=== PATIENT | male | born 1980 | race Caucasian/White ===

== ENCOUNTER → 2019-01-07 20:32 | Outpatient (CLI) | payer OTHER, SELFPAY | PROVIDERS: Family Provider Family Medicine; PCP Family Medicine; Referring Provider Family Medicine; Visit Provider Family Medicine | DX: G47.10 Hypersomnia, unspecified (principal); R53.83 Other fatigue | CPT/HCPCS: 95810 ==

== ENCOUNTER → 2019-02-19 20:00 | Outpatient (CLI) | payer OTHER, SELFPAY | PROVIDERS: Family Provider Family Medicine; PCP Family Medicine; Referring Provider Family Medicine; Visit Provider Family Medicine | DX: G47.33 Obstructive sleep apnea (adult) (pediatric) (principal) | CPT/HCPCS: 95811 ==

== ENCOUNTER → 2023-08-08 | Outpatient (CLI) | payer OTHER, SELFPAY ==
--- NOTE | 2023-08-08 11:30 | RAD_ITS ---
EXAM: XR CERVICAL SPINE, 4 OR 5 VIEWS CLINICAL INDICATION: NECK,BACK,ARM PAIN TECHNIQUE: Frontal, lateral and bilateral oblique views of the cervical spine. COMPARISON: No relevant prior studies available. FINDINGS: VERTEBRAE: There is reversal of the normal cervical lordosis. Preserved vertebral body height. No acute fracture. No spondylolisthesis. No significant facet arthropathy. DISC SPACES: Unremarkable. Disc spaces are maintained. SOFT TISSUES: Unremarkable. No prevertebral soft tissue widening. LUNG APICES: Clear. RAD/Cerv Spine 4 or 5 Views IMPRESSION: 1. No acute osseous abnormalities. 2. Reversal of the normal cervical lordosis which may be due to a muscular strain. Electronically Signed: Darrick Lehman MD at 23:18 EDT ,
--- OUTSIDE RECORDS SUMMARY | 2023-08-08 13:58 | XMS RPT_ITS | CCD ---
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 12 tablet 0 07/27/2023 07/30/2023 Active Completed/Discontinued Medications Medication Drug Class(es) Dates Sig (Normalized) Sig (Original) hydroCHLOROthiazide 12.5 mg / lisinopril 10 mg oral tablet (1 source) Thiazide Diuretic, Angiotensin Converting Enzyme Inhibitor Start: 06-27-2021 End: 06-07-2022 lisinopril-hydr oCHLOROthiazide (PRINZIDE,ZESTO RETIC) 10-12.5 mg per tablet hydroCHLOROthiazide 12.5 mg / losartan potassium 50 mg oral tablet (4 sources) Thiazide Diuretic, Angiotensin 2 Receptor Julio Start: 04-07-2022 take 1 tablet by mouth once daily losartan-hydroC HLOROthiazide (HYZAAR) 50-12.5 mg per tablet Take 1 tablet by mouth once daily. 0 04/07/2022 Active Problems Active Problems Problem Classification Problem Date Documented Date Episodic/Chronic Diverticulosis and diverticulitis (6 sources) Diverticulitis of colon with perforation; Translations: [Diverticulitis of large intestine with perforation and abscess without bleeding] Onset: 05-26-2013 07-30-2017 Chronic Essential hypertension (5 sources) Essential hypertension; Translations: [Essential (primary) hypertension] Onset: 06-07-2022 06-07-2022 Chronic Headache; including migraine (6 sources) Migraine; Translations: [Migraine, unspecified, not intractable, without status migrainosus] 07-30-2017 Chronic Nutritional deficiencies (7 sources) Vitamin D deficiency; Translations: [Vitamin D deficiency, unspecified] Onset: 07-30-2017 08-02-2017 Chronic Other connective tissue disease (1 source) Muscle spasm of cervical muscle of neck; Translations: [Other muscle spasm] 07-27-2023 Episodic Other nutritional; endocrine; and metabolic disorders (7 sources) Cholesterol level - finding; Translations: [Disorder of lipoprotein metabolism, unspecified] Onset: 07-30-2017 06-06-2020 Chronic Residual codes; unclassified (7 sources) Obstructive sleep apnea syndrome; Translations: [Obstructive sleep apnea (adult) (pediatric)] Onset: 03-25-2019 06-11-2019 Chronic Spondylosis; intervertebral disc disorders; other back problems (1 source) Cervical radiculopathy; Translations: [Radiculopathy, cervical region] 07-27-2023 Episodic Past or Other Problems Problem Classification Problem Date Documented Da te Episodic/Chronic Genitourinary symptoms and ill-defined conditions (6 sources) Microscopic hematuria; Translations: [Other microscopic hematuria] Onset: 06-11-2019 07-04-2019 Episodic Other circulatory disease (6 sources) Prehypertension; Translations: [Elevated blood-pressure reading, without diagnosis of hypertension] Onset: 07-30-2017 07-30-2017 Episodic Other non-traumatic joint disorders (6 sources) Pain in right knee; Translations: [Pain in joint, lower leg] Onset: 11-11-2018 11-11-2018 Episodic Other nutritional; endocrine; and metabolic disorders (5 sources) Blood urate raised; Translations: [Hyperuricemia without signs of inflammatory arthritis and tophaceous disease] Onset: 06-07-2022 06-07-2022 Episodic Other screening for suspected conditions (not mental disorders or infectious disease) (14 sources) Elevated C-reactive protein; Translations: [Elevated C-reactive protein (CRP)] Onset: 07-30-2017 07-30-2017 Episodic Results Test Name Value Interpretation Reference Range Facil ity Vital Signs Date Time Vital Sign Value Performing Clinician Faci lity 07-27-2023 13:50-0500 Body temperature 96.4 [degF] Krislyn Aberegg PA Work Phone: [facility] 07-27-2023 13:50-0500 Body weight 95.98 kg Krislyn Aberegg PA Work Phone: [facility] 07-27-2023 13:50-0500 Diastolic blood pressure 90 mm[Hg] Krislyn Aberegg PA Work Phone: [facility] 07-27-2023 13:50-0500 Heart rate 75 /min Krislyn Aberegg PA Work Phone: [facility] 07-27-2023 13:50-0500 Respiratory rate 19 /min Krislyn Aberegg PA Work Phone: [facility] 07-27-2023 13:50-0500 SaO2% (BldA) [Mass fraction] 100 % Krislyn Aberegg PA Work Phone: [facility] 07-27-2023 13:50-0500 Systolic blood pressure 120 mm[Hg] Krislyn Aberegg PA Work Phone: [facility] 06-07-2022 12:57-0500 Body height 178.1 cm [facility] Work Phone: [facility] 06-07-2022 12:57-0500 Body weight 92.03 kg Claudio Gonzalo DO Work Phone: [facility] 06-07-2022 08:04-0500 Diastolic blood pressure 84 mm[Hg] Jose J Lara MD Work Phone: [facility] 06-07-2022 08:04-0500 Heart rate 83 /min Jose J Lara MD Work Phone: [facility] 06-07-2022 08:04-0500 Systolic blood pressure 120 mm[Hg] Jose J Lara MD Work Phone: [facility] 06-07-2022 07:54-0500 Body height 178 cm Jose J Lara MD Work Phone: [facility] 06-07-2022 07:54-0500 Body temperature 97.7 [degF] Jose J Lara MD Work Phone: [facility] 06-07-2022 07:54-0500 Body weight 93.94 kg Jose J Lara MD Work Phone: [facility] Encounters Encounter Date Encounter Type Care Provider Facility Start: 07-27-2023 End: 07-27-2023 ambulatory [facility] Facility:[facility] Start: 07-27-2023 End: 07-27-2023 Patient encounter procedure Mara JARRELL Work Phone: [facility] Procedures Date Procedure Procedure Detail Performing Clinician Start: 06-07-2022 Lipid 1996 panel - S belle or Plasma Mara JARRELL Work Phone: Plan of Treatment Date Care Activity Detail Author Start: 07-31-2027 Urine microalbumin profile [facility] Start: 06-07-2027 Lipid panel Lipid Screening [facility] Start: 06-07-2027 LIPID SCREEN LIPID SCREEN [facility] Start: 06-08-2026 LIPID SCREEN LIPID SCREEN [facility] Start: 05-26-2023 Depression Assessment Depression Assessment [facility] Start: 01-24-2023 Covid-19 Vaccine ( season) Covid-19 Vaccine () [facility] Start: 01-24-2023 Influenza vaccination Influenza Vaccine (#1) [facility] Start: 05-26-2022 DEPRESSION ASSESSMENT DEPRESSION ASSESSMENT [facility] Start: 05-15-2022 End: 07-15-2022 25-hydroxyvitamin D3 [Mass/volume] in Serum or Plasma VITAMIN D 25 HYDROXY Lab Routine Laboratory examination Expected: 05/15/2022, Expires: 07/15/2022 [facility] Work Phone: Immunizations Immunization Date Immunization Notes Care Provider Fa cili 02-27-2021 influenza, seasonal, injectable Jose J Lara MD Work Phone: [facility] 02-27-2021 influenza virus vacc ine, unspecified formulation Mara JARRELL Work Phone: [facility] 02-23-2020 Influenza, injectabl e, Madin Hendley Canine Kidney, preservative free, quadrivalent Jose J Lara MD Work Phone: [facility] 02-23-2019 influenza, injectabl e, quadrivalent, contains preservative Jose J Lara MD Work Phone: [facility] 07-30-2017 influenza, injectabl e, quadrivalent, contains preservative Jose J Lara MD Work Phone: [facility] 07-30-2017 tetanus toxoid, redu mason diphtheria toxoid, and acellular pertussis vaccine, adsorbed Jose J Lara MD Work Phone: [facility] 02-29-2016 influenza, seasonal, injectable, preservative free Jose J Lara MD Work Phone: [facility] 04-18-2009 novel Influenza-H1N1 -09, live virus for nasal administration Jose J Lara MD Work Phone: [facility] Payers Date Payer Category Payer Unknown [id number] 2015 Unknown [id number] Social History Date Type Detail Facility Start: 07-29-2017 End: 06-07-2022 Tobacco smoking status NHIS Never smoked tobacco [facility] Start: 07-29-2017 End: 06-07-2022 Tobacco use and exposure Smokeless tobacco non-user [facility] Start: 06-18-2021 End: 07-27-2023 Alcohol intake Current drinker of alcohol (finding) [facility] Start: 1980 Sex Assigned At Male [facility] Start: 06-07-2022 End: 07-27-2023 History of Social function [facility] Start: 06-07-2022 End: 07-27-2023 Tobacco use panel [facility] National Score (1-100), lower number is lower risk 42 [facility] Start: 06-08-2021 Gender identity Identifies as male gender (finding) [facility] Start: 06-08-2021 Sexual orientation Heterosexual (ora villegas) [facility] NEGATED: Highlighted rowStart: SEANF History of tobacco use Passive smoker [facility] Work Phone: Clinical Notes 06-03-2022 to 07-27-2023 Mara Fernández PA - 07/27/2023 1:54 PM Chester Reese [employer]vel [employer] - 07/08/2022 7:[address] - 06/07/2022 12:48 PM Patti Norris RN - 06/07/2022 7:27 AM EST Note Date & Type Note Facility 07-27-2023 Note HNO ID: [id number] Author: MARA FERNÁNDEZ PA Service: ? Author Type: Physician Fiscal Assistant Type: Progress Notes Filed: 07/27/2023 13:58 Note Text: This note was created using Cynve[employer]er. Subjective Quita Kumar is a 42 year old male. HPI 42-year-old male presents for right upper back pain and radiating right arm pain. Patient states that he always has some tightness in his right upper back area and under the shoulder blade. He states that today it felt tight he and his gave him a massage. He states he took a shower and afterwards was doing an arm cervical and felt pain in his upper back area/shoulder blade. He states he started getting shooting pains down his right arm. No numbness or tingling. He states turning his neck causes worsening pain down the arm. No bowel or bladder incontinence. No headache. No fall or specific injury. No history of surgery on the neck or back in the past. No chest pain or shortness of breath. PAST MEDICAL HISTORY Diagnosis Date Diverticulitis of colon with perforation 2013 Migraine headache about 1 per month Obstructive sleep apnea on CPAP 03/25/2019 Occasional elevated blood pressure readings without diagnosis of hypertension Post-nasal drainage 2016 seen by ENT, negative allergy testing, attributed to possible silent acid reflux PAST SURGICAL HISTORY Procedure Laterality Date COLONOSCOPY 2013 TONSILLECTOMY AND ADENOIDECTOMY HX 1984 ALLERGIES Patient has no known allergies. MEDICATIONS losartan-hydroCHLOROthiazide (HYZAAR) 50-12.5 mg per tablet Take 1 tablet by mouth once daily. omeprazole (PRILOSEC) 40 mg capsule Take 40 mg by mouth once daily. SUMAtriptan (IMITREX) 50 mg tablet Take 50 mg by mouth as needed. predniSONE (DELTASONE) 10 mg tablet Take 4 tabs daily for 3 days, then 2 tabs daily for 3 days, then 1 tab daily for 3 days with food. methocarbamol (ROBAXIN) 500 mg tablet Take 1 tablet by mouth every 6 hours as needed (Pain) for up to 3 days. FAMILY HISTORY Problem Relation Age of Onset Hypertension Mother Age 80 Breast Cancer Mother diagnosed at 48 other (Mitral Valve Prolapse) Mother other (Probable TIA) Mother Coronary Artery Disease Father Age 80; stent at 75 Prostate Cancer Father diagnosed at ~55 other (Sleep apnea) Father Breast Cancer Sister diagnosed at 55 in 2014 Heart Brother SVT Hyperlipidemia Brother other (Diverticulitis requiring partial colectomy) Paternal Grandmother Breast Cancer Sister diagnosed at 44 in 2007 other (Diverticulitis requiring partial colectomy) Sister other (AFib) Sister None Sister other (Diverticulitis requiring partial colectomy) Paternal Uncle None Daughter Social History Tobacco Use Smoking status: Never Passive exposure: Never Smokeless tobacco: Never Vaping Use Vaping Use: Never used Substance Use Topics Alcohol use: Yes Alcohol/week: 0.0 - 2.3 standard drinks of alcohol Review of Systems Constitutional: Negative for chills and fever. HENT: Negative for congestion and sore throat. Respiratory: Negative for cough and shortness of breath. Gastrointestinal: Negative for diarrhea and vomiting. Musculoskeletal: Positive for back pain and neck pain. Objective BP 120/90 Pulse 75 Temp (!) 35.8 ?C (96.4 ?F) Resp 19 Wt 96 kg (211 lb 9.6 oz) SpO2 100% BMI 30.27 kg/m? Physical Exam Vitals and nursing note reviewed. Constitutional: General: He is not in acute distress. Appearance: Normal appearance. He is not toxic-appearing. Cardiovascular: Rate and Rhythm: Normal rate and regular rhythm. Pulmonary: Effort: Pulmonary effort is normal. Breath sounds: Normal breath sounds. Musculoskeletal: Cervical back: Tenderness present. No bony tenderness. Normal range of motion. Thoracic back: Tenderness present. No bony tenderness. Normal range of motion. Lumbar back: Normal. Comments: Patient has right-sided cervical paraspinal muscle tenderness and right trapezius muscle tenderness. Mild right-sided thoracic paraspinal muscle tenderness near the shoulder blade. He does have trapezius spasm noted on the right. Normal ROM cervical and thoracic spine. Nontender shoulder. Normal ROM of shoulder. No deformity. Patient states he has sharp pains going down the right arm. Normal sensation and strength right upper extremity. Normal clinical informatics director strength. Skin: General: Skin is warm and dry. Neurological: Mental Status: He is alert. Assessment and Plan ASSESSMENT/PLAN: 1. Cervical radiculopathy - ICD9: 723.4, ICD10: M54.12 (primary diagnosis) -Suspect cervical radiculopathy. -Rx for prednisone taper -Rx for Robaxin -No imaging available at time of exam. Patient has not had a fall. Low suspicion for fracture. -Advised patient to follow-up with his PCP next week. He may benefit from physical therapy or advanced imaging if symptoms persist. 2. Trapezius muscle spasm - ICD9: 728.85, ICD10: M62.838 -See ab (more content not included)... [facility] 07-27-2023 History of Presen t illness Narrative This note was created using Cynve[employer]er. Subjective Quita Kumar is a 42 year old male. HPI 42-year-old male presents for right upper back pain and radiating right arm pain. Patient states that he always has some tightness in his right upper back area and under the shoulder blade. He states that today it felt tight he and his gave him a massage. He states he took a shower and afterwards was doing an arm cervical and felt pain in his upper back area/shoulder blade. He states he started getting shooting pains down his right arm. No numbness or tingling. He states turning his neck causes worsening pain down the arm. No bowel or bladder incontinence. No headache. No fall or specific injury. No history of surgery on the neck or back in the past. No chest pain or shortness of breath. PAST MEDICAL HISTORY Diagnosis Date Diverticulitis of colon with perforation 2013 Migraine headache about 1 per month Obstructive sleep apnea on CPAP 03/25/2019 Occasional elevated blood pressure readings without diagnosis of hypertension Post-nasal drainage 2017 seen by ENT, negative allergy testing, attributed to possible silent acid reflux PAST SURGICAL HISTORY Procedure Laterality Date COLONOSCOPY 2013 TONSILLECTOMY AND ADENOIDECTOMY HX 1984 ALLERGIES Patient has no known allergies. MEDICATIONS losartan-hydroCHLOROthiazide (HYZAAR) 50-12.5 mg per tablet Take 1 tablet by mouth once daily. omeprazole (PRILOSEC) 40 mg capsule Take 40 mg by mouth once daily. SUMAtriptan (IMITREX) 50 mg tablet Take 50 mg by mouth as needed. predniSONE (DELTASONE) 10 mg tablet Take 4 tabs daily for 3 days, then 2 tabs daily for 3 days, then 1 tab daily for 3 days with food. methocarbamol (ROBAXIN) 500 mg tablet Take 1 tablet by mouth every 6 hours as needed (Pain) for up to 3 days. FAMILY HISTORY Problem Relation Age of Onset Hypertension Mother Age 80 Breast Cancer Mother diagnosed at 48 other (Mitral Valve Prolapse) Mother other (Probable TIA) Mother Coronary Artery Disease Father Age 80; stent at 75 Prostate Cancer Father diagnosed at ~55 other (Sleep apnea) Father Breast Cancer Sister diagnosed at 55 in 2014 Heart Brother SVT Hyperlipidemia Brother other (Diverticulitis requiring partial colectomy) Paternal Grandmother Breast Cancer Sister diagnosed at 44 in 2007 other (Diverticulitis requiring partial colectomy) Sister other (AFib) Sister None Sister other (Diverticulitis requiring partial colectomy) Paternal Uncle None Daughter Social History Tobacco Use Smoking status: Never Passive exposure: Never Smokeless tobacco: Never Vaping Use Vaping Use: Never used Substance Use Topics Alcohol use: Yes Alcohol/week: 0.0 - 2.3 standard drinks of alcohol Review of Systems Constitutional: Negative for chills and fever. HENT: Negative for congestion and sore throat. Respiratory: Negative for cough and shortness of breath. Gastrointestinal: Negative for diarrhea and vomiting. Musculoskeletal: Positive for back pain and neck pain. Objective BP 120/90 Pulse 75 Temp (!) 35.8 C (96.4 F) Resp 19 Wt 96 kg (211 lb 9.6 oz) SpO2 100% BMI 30.27 kg/m Physical Exam Vitals and nursing note reviewed. Constitutional: General: He is not in acute distress. Appearance: Normal appearance. He is not toxic-appearing. Cardiovascular: Rate and Rhythm: Normal rate and regular rhythm. Pulmonary: Effort: Pulmonary effort is normal. Breath sounds: Normal breath sounds. Musculoskeletal: Cervical back: Tenderness present. No bony tenderness. Normal range of motion. Thoracic back: Tenderness present. No bony tenderness. Normal range of motion. Lumbar back: Normal. Comments: Patient has right-sided cervical paraspinal muscle tenderness and right trapezius muscle tenderness. Mild right-sided thoracic paraspinal muscle tenderness near the shoulder blade. He does have trapezius spasm noted on the right. Normal ROM cervical and thoracic spine. Nontender shoulder. Normal ROM of shoulder. No deformity. Patient states he has sharp pains going down the right arm. Normal sensation and strength right upper extremity. Normal clinical informatics director strength. Skin: General: Skin is warm and dry. Neurological: Mental Status: He is alert. Assessment and Plan ASSESSMENT/PLAN: 1. Cervical radiculopathy - ICD9: 723.4, ICD10: M54.12 (primary diagnosis) -Suspect cervical radiculopathy. -Rx for prednisone taper -Rx for Robaxin -No imaging available at time of exam. Patient has not had a fall. Low suspicion for fracture. -Advised patient to follow-up with his PCP next week. He may benefit from physical therapy or advanced imaging if symptoms persist. 2. Trapezius muscle spasm - ICD9: 728.85, ICD10: M62.838 -See above. Diagnosis and treatment plan were discussed and questions were answered to the patient's satisfaction. Pt acknowledged understanding of concepts and follow up plan. Specific signs and symptoms that would indicate the need for higher level of care were discussed in detail warranting prompt ER evaluation. WESLY Odonnell documented in this encounter [facility] 07-08-2022 History of Presen t illness Narrative [employer] Summary The information included in this report is a comprehensive overview of the components of fitness necessary to maintain a higher quality of life. Upon completion of the fitness evaluation, this information has been customized to each individual in order for the evaluated individual to understand and utilize the major components of fitness, as well as the proper guidelines for exercising in a safe and effective manner. Each program is compiled as specified to individual needs and health goals. Patient Name: Quita Kumar Date: June 07, 2022 [facility] Number: [id number] [employer] Rankin Hours Worked/ wk: 45 Travel (%): 0 Health Related Goals: Need to start doing something; time saver workouts. Fitness History: No current exercise routine at this time; curling 2 days per week. Health Limitations: 1. Hypertension. 2. Borderline high cholesterol. 3. Normal coronary arteries, Coronary Calcium Score = 0 (05/2019). 4. Elevated C-reactive protein (us-CRP) 5. Obstructive sleep apnea on CPAP. 6. Elevated uric acid in blood. 7. Vitamin D deficiency. 8. TORIBIO Risk Score: The 10-year risk of development of coronary heart disease (coronary , resuscitated cardiac arrest, myocardial infarction, or angina with revascularization) can be assessed with the [place] risk scoring method along with Coronary Calcium Score, which includes age, sex, total and HDL cholesterol, blood pressure, diabetes and cigarette smoking, along with family history of heart attack and use of lipid-lowering medication. Percentage risk of less than 5% is considered low, 5 - 7.5% is considered borderline, 7.5% - 19.9% is intermediate risk, and greater than 20% is considered high risk. Based on your TORIBIO risk score, your 10-year risk of developing coronary heart disease is 2-3%. Orthopedic Limitations/ Chronic Pain: Neck pain, tension. Fitness Testing: See attached results for comparison of standards for age and gender. Sit and Reach Score: 10 inches *Ranking: Poor * Based on standardized ACSM guidelines for age and gender. General Flexibility: Body Part Right Left Body Part Right Left Hamstrings: 3 3 Quadriceps: 2 2 Gastroc/ Soleus: 2 2 Shoulder IR: 2 1 Hip Internal Rot. 2 2 Shoulder ER: 2 1 Hip External Rot. 2 2 Neck Flex/Ext: 2/2 Straight Leg Raise 3 3 Neck Rot.: 2 Lower Back: 2 Neck Sidebend: 2 1= Excellent 2=Normal 3=Below Average 4=Poor Balance: Normal Squat Test: Normal Exercise Recommendations: Type of exercise: Frequency (week) Duration (min) Mode: Intensity: Notes: Cardiovascular: Frequency should be a minimum 5-7 times per week of moderate intensity or 3-4 of vigorous intensity. 30-60 minutes Recommended examples include, but are not limited to: Running, biking, hiking, elliptical, swimming, dancing, aerobics, spinning Heart Rate Guidelines: Maintain a minimum of 150 minutes of cumulative cardiovascular exercise each week to meet [place] [employer] Guidelines. Anything beyond ten minutes of continuous cardiovascular exercise counts towards the 150 minute goal. Moderate: 137-154 bpm Vigorous: 158-166 bpm For weight loss, it is most effective to build up to a minimum of 5 sessions per week. Two sessions should include interval training of alternating higher and lower intensity for 2-4 minute bursts for 20-30 minutes, and the other days should be moderate intensity exercise at a constant pace for 45-60 minutes. Moderate: 3-5 Vigorous: 6-8 When just starting cardiovascular exercise, it is most effective to begin with light to moderate intensity cardio, and gradually increase the time and intensity. To improve cardiovascular performance, it is most effective to include interval training of alternating higher and lower intensities for 2-4 minute bursts for at least 20 minutes. Resistance: Frequency should be a minimum of two times per week for each major muscle group. When isolating muscles, the frequency may need to increase. 20-30 minutes Please see Time Saver Workout and total body routine using free weights, body weight and bands. 2-4 sets of 8-12 repetitions to exhaustion Safety and Effectiveness: Provide slow resistance in each direction and adapt the resistance to suit your strength capabilities. Allow for a day of rest in between sessions of the same muscle group. Do not hold your breath. Exhale during the most difficult portion of any lift. Initiate the enclosed strength training program and alter the routine every 6-12 weeks to prevent muscle memory. All exercises should be performed a minimum of twice a week to show gains. Please see chest and back exercises. Resistance exercise can assist with weight loss by increasing your resting metabolic rate. Flexibility: 3-7 10-20 minutes Please see upper body stretches. Each stretch should cause you to feel tension in the muscle, but never a sharp pain. Stretching is most effective when done either after or independent of exercise. A warm up is important in order to prevent injury. Please see full body stretches. 20 seconds per stretch, and repeat each stretch 2-3 times; stretch any restricted muscles. Balance/ Agility: 3-7 10-20 minutes Basic Balance Light Please see basic balance exercises. Special Considerations: If you feel any unusual sensations during exercise including, but not limited to chest pain, nausea, lightheadedness, dizziness, extreme fatigue, or any sharp pain, discontinue exercise immediately and consult your physician. Any specific exercises that cause discomfort should be stopped and excluded from your routine. This exercise program is designed to be safe and effective, however, certain health conditions may arise that would change safety guidelines for exercise. Please check with your physician if you are newly diagnosed with heart disease, high blood pressure, diabetes, osteoporosis, arthritis, or any other chronic condition. 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 [place] BMI: 18.5-24.9 Percent body fat: 25.8 %, [place] body fat percentage is 10-20% for male. 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 Patient's symptoms are: Weight Concerns: failure to lose weight Diet history: obtained and reviewed Awake at 5 am. Asleep at 10 pm. Feels good with this amount of sleep. Breakfast 6 am: [place] yogurt with 1/4 cup granola Lunch 12 pm: chips, leftovers from dinner, and cookies or other sweet, and can of diet soda. Dinner 6/6:30 pm: Main - meat, fish, or pasta, starch/bread or vegetable. Snack: not common Red meat - 4-6, fish - 0-1, chicken - 6, occasionally pasta or other meat free meal. Dairy - 2 servings per day, often meals have cheese added Legumes - dislikes beans. Nuts/seeds - not often but does like them. Beverages: Coffee 2 cups/day - creamer, 28 oz diet soda per day ETOH: occasionally. Dining Out: 1-2 meals/week Nutrition Supplements: none Allergies: Patient has no known allergies. Past Medical History PAST MEDICAL HISTORY Diagnosis Date Diverticulitis of colon with perforation 2013 Migraine headache about 1 per month Obstructive sleep apnea on CPAP 03/25/2019 Occasional elevated blood pressure readings without diagnosis of hypertension Post-nasal drainage 2017 seen by ENT, negative allergy testing, attributed to possible silent acid reflux Labs: available nutrition-related labs reviewed - elevated CRP, total cholesterol, and LDL cholesterol, low vitamin D Medications: reviewed in chart and medical history questionnaire Malnutrition Screening Significant unintentional weight loss? No Eating less than 75% of usual intake for more than 2 weeks? No Learning Readiness: Motivation to Learn: Interested - Wants to learn Family/Significant Other Support: Unable - Family not present Cognitive Ability: Alert and Oriented Patient learns best by: Multiple Methods Factors affecting learning: None Physical limitation affecting learning: None Educational materials provided: Mediterranean Diet Assessment: Body composition showing overweight with central adiposity. Weight History/Weight Change: Has been relatively stable. Since 05/2020 patient has gained 0.4 lbs overall with a 3.1 lb gain of skeletal muscle and a 2.6% reduction in body fat percentage. Food recall showing: Undesirably Exceeding Standard Recommendations for - red meat, sweets/refined carbs Meeting Standard Recommendations for - dairy/calcium (cheese is common) Below Standard Recommendations for - fruit, vegetables, whole grains, legumes, nuts/seeds, fish/omega-3 Patient is interested in weight loss. Prepares most foods at home.Tracking calories in [employer]. Reports he knows what to do but struggles with implementation. Nutrition Diagnosis: Overweight/obesity, related to, excess energy intake, food/nutrition - related knowledge deficit, and physical inactivity, as evidenced by BMI above normative standard for age and gender and waist circumference above normative standard for age and gender. Nutrition Monitoring & Evaluation: Implement dietary recommendations to support your goals to lose weight and improve health overall. Nutrition Interventions: Comprehensive nutrition evaluation focused on health promotion, modify composition of meals. Plan Behavior Change: Set small goals working toward long-term health and nutrition goals. 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 Start with the goals you think will be easiest to help build confidence in your ability to change. Some of the strategies we discussed today are listed below: Add fruit - to breakfast, and lunch if possible. Use frozen/pre-cut fruits to make this easier. For lunch choose eat the fruit before the meal to help with portion control. Dinner - prepare enough food to ensure a full sized lunch the following day. This will help reduce low-nutrient, high calorie foods sugar as chips and sweets. Try Linq3 danial for meal planning. This can help you to find recipes that align with the different food preferences of you and your . The pro-version allows you to see nutrition information. Look at the nutrition label when grocery shopping and choose the lowest saturated fat foods. The larger the difference between total fat and saturated fats (such as 15 g total fat and 1 g saturated fat), the more heart healthy fats are in the food. Optimize Body Composition: Aim for 3302-2024 calories per day paired with exercise for a 0.5-1.5 lb per week weight loss. Continue to track calories in MyFitnessPal. Follow executive health physician guidance regarding activity limitations. Gradually work toward exercise guidelines provided by exercise physiology. Strength training is essential to maintain muscle mass. Consume high protein foods (totaling 25-35 g protein) with each meal or at least 3 times per day to best maintain muscle mass. You are likely meeting this goal most days. 5-10% weight/fat loss (10-20 lbs) can help to improve heart health. Mediterranean Diet: Aim for 1/2 plate of vegetables, 1/4 plate of whole grains, and 1/4 plate plant-based protein (such as tofu, edmame, tempeh, and starchy beans) or low fat animal proteins as the base of most of your meals. Since you prefer your vegetable mixed in - aim for twice as many vegetables as starch and protein. Choose fish twice per week, or choose plant-based omega-3s such as gerardo seeds, ground flax seeds, or walnuts daily. Add ground flax and/or gerardo to your yogurt, fruit, and granola in the morning. Choose olive oil, avocado, and nuts (up to 1/4 cup per serving) as main sources of fat in the diet. Limit use of butter, ghee, lard, and coconut oil. Keep meat portions to 1/4 plate or less, and choose fish, or skinless poultry most often. Minimize intake of red meat and pork (ideally 0-1 serving per week), and choose low fat options when you do have them. Choose fruit as an every day dessert or appetizer to reduce total food consumed at the meal. Aim for at least 2 servings per day. Choose low fat milk and low fat yogurt for your main dairy products. Choose low fat cheese when available and keep portions of cheese small and infrequent. Eat a variety of colors when it comes to fruits and vegetables. The more variety of plant foods in your diet, the better you will meet your antioxidant and nutrient needs. Though plant oils can be healthy for your cholesterol, they contain ample calories so monitor portions added to food and used for cooking - 1tbsp is 120 calories. Hydration: Do your best to drink at least 80 oz fluid per day (coffee does count). Being well-hydrated can help with appetite and weight control. Do your best to drink water or sparkling water throughout the day. Diet soda can contribute to increased food intake later in the day for some individuals. If you are interested in a different flavor, consider trying Hint Water or flavored sparkling water to add some flavor with no added sugars or artificial sweeteners. Provider Follow Up: If you need additional nutrition education support before your next executive health visit, please call [phone] to schedule a telehealth visit with an outpatient [facility] Dietitian. Supplements: It is best to get your nutrients from foods rather than supplements whenever possible. Discuss your current supplements with the executive health physician to determine if any changes should be made to optimize your health. Vitamin D is best absorbed in the presence of fat. Take Vitamin D with your largest, highest fat meal of the day. Criteria: lab values, body composition/weight, food recall, patient input Follow up: at next Executive Physical Referred/Supervised by: Jane/Matt Consult Billing Type: body composition rate MNT: ea 15 minutes, 4 increments Signed by: Gin Velazquez RD documented in this encounter [facility] 06-07-2022 History of Presen t illness Narrative Mr. Quita Kumar is a 41 year old male from [facility], who presents for a comprehensive health evaluation. Last Executive Physical 05/2021. PRESENT COMPLAINTS: Comprehensive health evaluation. PRESENT MEDICATIONS: Losartan-hydrochlorothiazide 50-12.5 mg once daily. Prilosec (omeprazole) 40 mg once daily. Imitrex (sumatriptan) 50 mg tablet, as needed for migraine headache (only once in past year). Cipro (ciprofloxacin) 500 mg twice per day for 7 days as needed for presumptive diverticulitis (about 2x/year, but none in past year). MEDICATION ALLERGIES: No known medication allergies. PAST MEDICAL HISTORY: Borderline high blood pressure, on medication since 06/2021. High cholesterol, never on medication. Normal coronary arteries, Coronary Calcium Score = 0 (05/2019). Post-nasal drainage - 2016 (seen by ENT, negative allergy testing, attributed to possible silent acid reflux). Diverticulitis of colon with perforation - 2013 (has mild symptoms about 1x/year since then, effectively addressed with Cipro). Migraine headache (about 1 per month; less since using CPAP, and much less since starting blood pressure treatment). Vitamin D deficiency. Obstructive sleep apnea on CPAP (since 03/2019). Microscopic hematuria (blood in urine) - 05/2019, 05/2020. PAST SURGICAL HISTORY AND PROCEDURES: Tonsillectomy and adenoidectomy - 1984. Colonoscopy - 2013. FAMILY HISTORY: Mother: Age 85; Hypertension, breast cancer (diagnosed at 48), mitral valve prolapse, probable TIA. Father: Age 85; Coronary artery disease (stent at 75), prostate cancer (diagnosed at ~55), sleep apnea. Sister (Destinee): Breast cancer (diagnosed at 55 in 2014). Sister (Yolanda): Breast Cancer (diagnosed at 44 in 2007), diverticulitis requiring partial colectomy, AFib. Sister (Katie): Arrhythmia/ablation. Brother (Aroldo): SVT arrhythmia/ablation, hyperlipidemia. Daughter (Evangelina 13): Anxiety, otherwise healthy. Paternal Grandmother: Diverticulitis requiring partial colectomy. Paternal Uncle: Diverticulitis requiring partial colectomy. SOCIAL HISTORY: Marital Status: to Fely with 1 child. Tobacco Use: Never. Alcohol Use: Approximately 0-2 drinks per week. Drinks 16 oz of coffee per day. Drinks 2-3 cans of diet soft drink per day. Sleeps well, 7-7.5 hours per night. Sleep is noticeably more refreshing since using CPAP since 03/2019. Diet: Was rather attentive since 02/2017 through reducing portion sizes and eating more vegetables, but less attentive since 2019, with larger portion sizes. Has red meat/pork 2-3x/week. Has started to use [place] danial in past 2 weeks, helping to control snacks and portion sizes. Exercise: No regular exercise prior to 02/2017, has used elliptical intermittently since then. Was walking during summer 2019, none in fall 2019, resumed elliptical 03/2020 through 10/2019, resumed walking in summer 2021, walked daily until weather got cold. 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 not since. Did use weights 2x/week for 3 months in mid 2019, not since 10/2019. OCCUPATIONAL HISTORY: [employer]. Works 45 hours per week and travels <5% of the time. Mild stress level at work reported. REVIEW OF SYSTEMS: Feels rather well in general. Weight has been stable in past year. Started blood pressure medication 06/2021, Lisinopril-hydrochlorothiazide caused significant drowsiness, switched to Losartan-hydrochlorothiazide after 2 months and feels much better with much fewer headaches, too. No chest pain, palpitations, shortness of breath, lightheadedness with exertion, claudication, or edema. Taking Prilosec (omeprazole) daily helped treat the occasional, brief dry cough noted 2 years ago. No persistent heartburn. No changes in bowel habits. Has not felt symptoms of diverticulitis in past year. No urinary difficulties (more freuent on the blood pressure medication) or sexual concerns. The rest of the review of symptoms is unremarkable. PHYSICAL EXAMINATION: VITAL SIGNS: BP 120/84 (BP Site: Left Arm, BP Position: Sitting, BP Cuff Size: Regular Adult) Pulse 83 Temp 36.5 C (97.7 F) (Temporal Artery) Ht 178 cm (5' 10.08 ) Wt 93.9 kg (207 lb 1.6 oz) BMI 29.65 kg/m GENERAL APPEARANCE: Alert, overweight, well appearing and in no acute distress. SKIN: Skin color, texture, turgor normal. Multiple bening-appearing nevi (moles). No suspicious rashes or lesions. HEAD: No significant findings. EYES: PERRLA, EOMI, conjunctiva pink, anicteric sclerae. EARS: External ears normal. Canals clear. TMs normal. NOSE/SINUSES: External nares normal. Clear nasal passages. No sinus tenderness. OROPHARYNX: Moist mucous membranes. No masses or lesions. No sublingual icterus or pallor. Oropharynx normal. NECK: Supple, no lymphadenopathy, normal thyroid, no carotid bruits and no JVD. BACK: Back symmetric, normal curvature, no costovertebral angle tenderness. LUNGS: Clear to auscultation and percussion throughout all lung pope, chest rise is even. HEART: Normal PMI, regular rhythm, normal S1 and S2 heart sounds, no gallop and no murmurs. ABDOMEN: Normal bowel sounds, no abdominal bruits. Mildly obese, soft, non-tender, no palpable masses and no hepatosplenomegaly. EXTREMITIES: No deformities, no skin discoloration, no edema, normal pulses bilaterally. NEURO: Awake, alert and oriented x 3, cranial nerves II-XII grossly intact, reflexes symmetrical, no involuntary motions. GENITALIA: Penis normal. No urethral discharge. Scrotum normal to palpation. No hernias. RECTAL: Anus normal. No rectal masses. Prostate smooth, non-tender, no palpable nodules. CONCLUSIONS: Executive Physical See letter for final conclusions based on pending results. RECOMMENDATIONS: Try to eat a diet with abundant potassium; potassium is found in foods such as kiwi, tomatoes, many beans, salmon, and bananas. Weight loss will likely help decrease uric acid level, too, but watch for a gout attack which would feature a painful, red, swollen joint. To prevent attacks reduce alcohol intake; avoid anchovies, sardines, blanca, organ meats (eg, liver), legumes (eg, dried beans, peas), mushrooms, spinach, asparagus and cauliflower; increase intake of dark berries (blueberries, blackberries and cherries), and soybeans and tofu may help; maintain a healthy weight and drink plenty of fluids. Medications are also available to help lower uric acid levels, such as allopurinol. Vit D 2000 in winter See letter for final recommendations based on pending results. Jose J Lara MD documented in this encounter [facility] 06-07-2022 Nurse Note Pt. was identified by name and birthdate. Latex allergy: No Pend Hep C (needs completed once ages 18-79 years) Completed - 06/12/2020 Pend HIV (needs completed once ages 13-64 years) Completed 06/12/2020 Is the patient active on MyChart Yes Medications will be reviewed by MD. Medication list reviewed by RN. Importance of a current medication list discussed with pt. Patient verbalizes good understanding. Date of last Colonoscopy: unsure/2012? Next Due: patient states unsure Immunizations Reviewed the following vaccines with patient. See also immunization section in Epic for vaccine history and vaccines patient received today. Td- NA Tdap- 07/30/2017 Pneumococcal- (Pneumovax 23)- NA Prevnar 13- NA PCV 20- NA Hepatitis A-NA Hepatitis B-NA Influenza-Discussed with patient, declined Shingrix- NA Covid (monovalent)- x 3 doses Covid (bivalent)-Discussed with patient, declined See Immunization record in EPIC. Discussed with patient current recommendations from the CDC for routine adult immunizations. Questions answered. Pt. verbalizes understanding of information discussed. VISUAL ACUITY Patient declines vision exam states annual exam July 2021 Date of Last Exam - annual exam July 2021 Vision Correction Glasses BP Gilberto : BP Gilberto explained to pt. Questions answered. Pt. verbalizes understanding of information discussed. See BP Gilberto flowsheet for results. Spirometry: Spirometry testing done. 07/30/2017 documented in this encounter [facility] 06-03-2022 Miscellaneous Notes Previsit call completed. confirmed. Reviewed department guidelines/changes with pt in regards to covid 19-pt verbalized understanding. Additional consults: none Cx fundus per pt. Q: reviewed. Pt states he is going to send in a new one to update medication list. Per pt he is now on Losartan-Hctz documented in this encounter [facility] Executive Physical- Primary Unspecified general medical examination Hypertension Unspecified essential hypertension Borderline high cholesterol Unspecified disorder of lipoid metabolism Normal coronary arteries, Coronary Calcium Score = 0 (05/2019) Screening for other and unspecified cardiovascular conditions Elevated C-reactive protein (CRP) Obstructive sleep apnea on CPAP Obstructive sleep apnea (adult) (pediatric) Elevated uric acid in blood Other abnormal blood chemistry Vitamin D deficiency Unspecified vitamin D deficiency [facility] Diagnosis Wellness examination- Primary [facility]* Diagnosis Cervical radiculopathy- Primary Brachial neuritis or radiculitis nos Trapezius muscle spasm Spasm of muscle [facility])* Outpatient Procedure (Routine) - Authorized Specialty Diagnoses / Procedures Referred By Duran read [facility] Diagnoses Routine general medical examination at a health care facility Procedures ECG COMPLETE ECG ROUTINE ECG W/LEAST 12 LDS W/I&R Jose J Lara MD [address] [place] [id number] [facility] [address] [place] [address] Referral ID Status Reason Start Date Expiration Date Visits Requested Visits Authorized [id number] Authorized Auto-Generat ed Referral 05/02/2022 05/02/2023 1 1 [facility] Summary Purpose Family History No Family History Records Found Advance Directives No Advanced Directives Records Found Additional Source Comments Source Comments (unrecognize d section and content) In the event this informatio n is protected by the Federal Confidentiality of Alcohol and Drug Abuse Patient Records regulations: The Federal rules restrict any use of the information to criminally investigate or prosecute any alcohol or drug abuse patient.[facility] the event this information is protected by the Federal Confidentiality of Alcohol and Drug Abuse Patient Records regulations: The Federal rules restrict any use of the information to criminally investigate or prosecute any alcohol or drug abuse patient.[facility] the event this information is protected by the Federal Confidentiality of Alcohol and Drug Abuse Patient Records regulations: The Federal rules restrict any use of the information to criminally investigate or prosecute any alcohol or drug abuse patient.[facility] the event this information is protected by the Federal Confidentiality of Alcohol and Drug Abuse Patient Records regulations: The Federal rules restrict any use of the information to criminally investigate or prosecute any alcohol or drug abuse patient.[facility] the event this information is protected by the Federal Confidentiality of Alcohol and Drug Abuse Patient Records regulations: The Federal rules restrict any use of the information to criminally investigate or prosecute any alcohol or drug abuse patient.[facility] the event this information is protected by the Federal Confidentiality of Alcohol and Drug Abuse Patient Records regulations: The Federal rules restrict any use of the information to criminally investigate or prosecute any alcohol or drug abuse patient.[facility] Reason for Visit (unrecogniz ed section and content) Reason Comments Nutrition Assessment Patient Education Specialty Diagnoses / Procedures Referred By Contac t Referred To Contact Internal Medicine / INTERNAL MEDICINE Diagnoses Personal insurance, Q Scanned Procedures EST PHYSICAL Jose J Lara MD [address] [place] [address] Jose J Lara MD [address] [place] [address] Referral ID Status Reason Start Date Expiration Date Visits Re quested Visits Authorized [id number] Closed 06/07/2022 09/05/2022 99 99 Reason Comments Back Pain Possible pinched ner ve in right upper back x 5 days Care Teams (unrecognized sec tion and content) Wallcovering Hanger Relationship Specialty Start Date End Date Claudio Sánchez DO [address] [facility] [place] [address] PCP - General Family Medicine 07/30/17 Wallcovering Hanger Relationship Specialty Start Date End Date Claudio Sánchez DO [address] [place] [address] PCP - General Family Medicine 07/30/17 Wallcovering Hanger Relationship Specialty Start Date End Date Claudio Sánchez DO [address] [place] [address] PCP - General Family Medicine 07/30/17 Wallcovering Hanger Relationship Specialty Start Date End Date Claudio Sánchez DO [address] [place] [address] PCP - General Family Medicine 07/30/17 Wallcovering Hanger Relationship Specialty Start Date End Date lCaudio Sánchez DO [address] [place] [address] PCP - [facility] 07/30/17 (unrecognized sect ion and content) No Status Records Found INFORMATION SOURCE (unrecogn ized section and content) FOR RECORDS PERTAINING TO PATIENTS WHO ARE OR HAVE BEEN ENROLLED IN A CHEMICAL DEPENDENCY/SUBSTANCEABUSE PROGRAM, SOME INFORMATION MAY BE OMITTED. This clinical summary was aggregated from multiple sources. Caution should be exercised in using it in the provision of clinical care. This summary normalizes information from multiple sources, and as a consequence, information in this document may materially change the coding, format and clinical context of patient data. In addition, data may be omitted in some cases. CLINICAL DECISIONS SHOULD BE BASED ON THE PRIMARY CLINICAL RECORDS. [facility]. provides no warranty or guarantee of the accuracy or completeness of information in this document.
== END | disposition home or self-care (01) ==
PROVIDERS: PCP Family Medicine; Referring Provider Family Medicine; Visit Provider Family Medicine
DX: M54.12 Radiculopathy, cervical region (principal)
CPT/HCPCS: 72050

== ENCOUNTER → 2024-06-15 | Outpatient (CLI) | payer BC, SELFPAY ==
--- NOTE | 2024-06-15 14:26 | CT_ITS ---
STUDY: CT CHEST WITH CONTRAST REASON FOR EXAM: Male, 43 years old. SOLITARY PULMONARY NODULE, RIGHT SIDE 6-7 MM DETECTED ON CHEST XRAY AT OUTSIDE FACILITY RADIATION DOSAGE (If Supplied By Facility): CTDIvol = ( 15.93 ) mGy, DLP = ( 575.91 ) mGycm TECHNIQUE: Transaxial imaging was performed following intravenous administration of 100ML ISOVUE 300. Multiplanar coronal and sagittal images were reformatted. Individualized dose optimization techniques were used for this CT. COMPARISON: No relevant priors. FINDINGS: CHEST There is a 6.5 mm partially calcified granuloma in the anterior aspect of the right upper lobe as seen on axial image #49. There is no demonstrated pleural abnormality. Normal heart and pericardium. Normal mediastinum. Normal hilar regions. Normal unenhanced pulmonary arteries. Normal aorta arch and descending thoracic aorta. Normal osseous structures. There is no demonstrated abnormality of the visualized upper abdomen. CT/Chest WITH Contrast IMPRESSION: 6.5 mm partially calcified granuloma in the anterior aspect of the right upper lobe as seen on axial image #49. No follow-up recommended. Electronically Signed: Tin Jennings MD at 15:13 EST ,
== END | disposition home or self-care (01) ==
LOC: CT 14:22
PROVIDERS: PCP Family Medicine; Referring Provider Family Medicine; Visit Provider Family Medicine
DX: R91.1 Solitary pulmonary nodule (principal)
CPT/HCPCS: 71260; Q9967